=== PATIENT | male | born 1970 | race Caucasian/White ===

== ENCOUNTER 2017-12-12 08:04 | Day surgery (SDC) | payer BC ==
[~2017-12-12 08:04] MED LIST: PROPOFOL 500 MG/50 ML EMU IV ONE
[2017-12-12 10:12] VITALS: BP 118/65; PULSE 73; RESP 20; TEMP 98; O2SAT 97
== END 2017-12-12 10:20 | disposition home or self-care (01) ==
LOC: SURG 08:04
PROVIDERS: ATTEND Surgery
DX: Z12.11 Encounter for screening for malignant neoplasm of colon (principal)
CPT/HCPCS: J2704

== ENCOUNTER 2018-01-16 11:44 | Outpatient (CLI) | payer BC ==
[2017-12-12 10:12] VITALS: O2SAT 97
== END 2018-01-16 11:45 | disposition home or self-care (01) ==
LOC: CONVCARE 11:44
PROVIDERS: ATTEND Orthopaedic Surgery
DX: M75.42 Impingement syndrome of left shoulder (principal)
CPT/HCPCS: 73221